=== PATIENT | female | born 1975 | race Caucasian/White ===

== ENCOUNTER → 2019-01-11 | Outpatient (CLI) | payer OTHER ==
[~2019-01-11] MED LIST: ALBU90OI INH; ALPR.25 PO; AMIT25 PO; AMOCLA875 PO; AMOX500 PO; ASPI81CH PO; BUPR150ER PO; BUPR150T2 PO; CARV6.25 PO; CHLO25B PO; CIPR500 PO; CLON.1 PO; CODGUAEL PO; Cipro500 MG PO; DIPATR PO; ERGO50000 PO; FLUO20 PO; GLIP10 PO; HYDACE5 PO; HYDGUAL120 PO; HYDPAM25 PO; HYDROCHLOROTHIAZIDE; INSUASPI; INSUASPI SC; INSUASPI SUBQ; INSULANI SC; INSULANI SUBQ; INSULANPEN SC; LATA.005SO BOTHEYES; LEVSOD100 PO; LISHYD1012 PO; LISHYD2025 PO; LISI20 PO; LISINOPRIL; LOSA50 PO; LOSHYD; MAGOXI400 PO; MELO7.5 PO; METF500 PO; METO50ER PO; Norco 5-325 Ta1 EACH PO; OCUVITE EYE +1 EACH PO; OMEP20ER PO; Ocuvite Softge1 EAC1 PO; POTCHL10ER PO; PRAV20 PO; PROCODE120 PO; PROM25 PO; PROP120ER PO; SULTRIDS PO; TIMO.25OPS BOTHEYES; TRAM50 PO; TRIHYD253A PO; Vistaril50 MG PO; Vitamin B Comple1 EA PO; WATER PILL; ZESTORETIC 20-121 EA PO; [UNRECOGNIZED DRUG - REMARK]
== END ==
LOC: LAB SHORT 10:30 → LAB 10:30 → LAB FUT 12-30 11:45
DX: K52.9 Noninfective gastroenteritis and colitis, unspecified (principal); E03.9 Hypothyroidism, unspecified
CPT/HCPCS: 87338

== ENCOUNTER 2019-02-16 08:53 | Day surgery (SDC) | payer OTHER ==
[~2019-02-16] VITALS: Ht 162 cm; Wt 107.6 kg
[~2019-02-16 08:53] MED LIST changes: +AMLO10 PO; +Aspir 8181 MG PO; +BASAGLAR SC; +BUSP5 PO; +Bupropion HCl150 M2 PO; +Glucophage1000 MG PO; +LEVO-T137 MCG PO; +LOSARTAN POTAS100 MG PO; +NOVOLOG FL100 UNIT/1 SC; +OCUVITE ADULT1 EAC1 PO
--- NOTE | 2019-02-16 10:20 | NUR ---
History, Chart, Medications and Allergies reviewed before start of procedure. Patient States Post-Procedure ride home has been arranged.
--- NOTE | 2019-02-16 10:40 | NUR ---
02/16/19 1040 JolynnKedar PATIENT DETERMINED TO BE ASA APPROPRIATE FOR PROPOFOL SEDATION PRIOR TO START OF PROCEDURE BY 3-LEAD EKG REVIEWED WITH PHYSICIAN PRIOR TO START OF PROCEDURE.Patient to ENDO 1History, Chart, Medications and Allergies reviewed before start of procedure.MONITOR INTACT WITH CONTINUOUS PULSE OXIMETRY AND INTERMITTENT BP.O2 VIA N/C INTACT THROUGHOUT SEDATION/PROCEDURE.
--- NOTE | 2019-02-16 12:05 | NUR ---
PT AMBULATES TO AND FROM RESTROOM WITH NO DIZZINESS OR NAUSEA. PT GETS DRESSED. DC INFORMATION REVIEWED. IV DC, TIP INTACT. THIS RN TO ESCORT PT TO LOBBY TO WAIT FOR RIDE HOME.
== END 2019-02-16 12:27 | disposition home or self-care (01) ==
LOC: ORSCMMR 08:53 → ORD 10:00 → ORSCMMR 10:00
PROVIDERS: Internal Medicine Gastroenterology
PROC: 0DBE8ZX Excision of Large Intestine, Via Natural or Artificial Opening Endoscopic, Diagnostic (ICD-10-PCS; principal; 2019-02-16 10:00)
DX: R19.7 Diarrhea, unspecified (principal); K59.00 Constipation, unspecified; E11.9 Type 2 diabetes mellitus without complications; E03.9 Hypothyroidism, unspecified; I10 Essential (primary) hypertension; Z79.4 Long term (current) use of insulin; Z79.899 Other long term (current) drug therapy; E66.01 Morbid (severe) obesity due to excess calories; Z68.39 Body mass index [BMI] 39.0-39.9, adult
CPT/HCPCS: 82947; 88305; J2250; J2704; J7120

== ENCOUNTER 2019-03-19 08:16 | Day surgery (SDC) | payer OTHER | END 2019-03-19 22:38 | disposition home or self-care (01) | LOC: US 08:16 | DX: R94.5 Abnormal results of liver function studies (principal); E89.0 Postprocedural hypothyroidism; I10 Essential (primary) hypertension; E11.39 Type 2 diabetes mellitus with other diabetic ophthalmic complication; H42 Glaucoma in diseases classified elsewhere; F32.9 Major depressive disorder, single episode, unspecified; F41.9 Anxiety disorder, unspecified; E66.9 Obesity, unspecified; Z68.39 Body mass index [BMI] 39.0-39.9, adult; Z90.710 Acquired absence of both cervix and uterus; Z90.49 Acquired absence of other specified parts of digestive tract; Z88.8 Allergy status to other drugs, medicaments and biological substances; Z79.4 Long term (current) use of insulin; Z79.82 Long term (current) use of aspirin; Z79.899 Other long term (current) drug therapy | CPT/HCPCS: 47000; 76942; 88307 ==

== ENCOUNTER → 2022-07-26 | Outpatient (CLI) | payer OTHER ==
[~2022-07-26] MED LIST changes: +AMLO5 PO; +BASAGLAR K100 UNIT/8 SC; +Budeprion Xl300 MG PO; +GLUCOPHAGE1000 M1 PO; +LOSARTAN POTAS100 M1 PO; +NOVOLOG FL100 UNIT/2; +SYNTHROID137 MCG PO; +VITAMIN D32000 UNI2 PO
[2022-07-26 19:41] LABS: BASOPHILS ABSOLUTE AUTO 0.08 K/mm3 (0.00-0.23); BASOPHILS PERCENT AUTO 1 % (0-2); EOSINOPHILS ABSOLUTE AUTO 0.08 K/mm3 (0.00-0.68); EOSINOPHILS PERCENT AUTO 1 % (0-6); Hematocrit 38.6 % (33.0-51.0); Hemoglobin 12.6 g/dL (11.5-16.0); IMMATURE GRAN ABSOLUTE AUTO 0.08 K/mm3 (0.00-0.10); IMMATURE GRAN PERCENT AUTO 1 % (0-1); LYMPHOCYTES ABSOLUTE AUTO 2.68 K/mm3 (0.84-5.20); LYMPHOCYTES PERCENT AUTO 39 % (21-46); MONOCYTES ABSOLUTE AUTO 0.52 K/mm3 (0.16-1.47); MONOCYTES PERCENT AUTO 8 % (4-13); Mean Corpuscular HGB 25.9 pg (26.0-34.0); Mean Corpuscular HGB Conc 32.6 g/dL (31.5-36.5); Mean Corpuscular Volume 79 fL (80-100); NEUTROPHILS ABSOLUTE AUTO 3.43 K/mm3 (1.96-9.15); NEUTROPHILS PERCENT AUTO 50 % (41-73); RDW Coefficient Variation 13.3 % (11.7-14.2); RDW Standard Deviation 37.9 fL (35.1-46.3); Red Blood Cell Count 4.87 M/mm3 (3.80-5.20); White Blood Cell Count 6.87 K/mm3 (4.00-11.30)
[2022-07-26 20:14] LABS: Mean Platelet Volume 9.8 fL (9.1-12.4); Platelet Count 363 K/mm3 (150-400)
[2022-07-26 20:24] LABS: Albumin, Blood 3.6 g/dL (3.4-5.0); Albumin/Globulin Ratio 0.8 (0.8-1.8); Bilirubin, Total 0.4 mg/dL (0.1-1.0); Bun/Creatinine Ratio 23.2 (12.0-20.0); Calcium, Blood 9.6 mg/dL (8.5-10.1); Creatinine, Blood 1.12 mg/dL (0.40-1.00); Globulin, Blood 4.4 g/dL (2.2-4.0); Potassium, Blood 3.7 mmol/L (3.5-5.5)
== END | disposition home or self-care (01) ==
LOC: LAB 18:49 → LAB SHORT 18:49
PROVIDERS: Family Medicine
DX: K74.60 Unspecified cirrhosis of liver (principal); Z79.899 Other long term (current) drug therapy
CPT/HCPCS: 80053; 85025

== ENCOUNTER → 2023-03-21 | Outpatient (CLI) | payer OTHER ==
[2023-03-21 20:44] LABS: BASOPHILS ABSOLUTE AUTO 0.05 K/mm3 (0.00-0.23); BASOPHILS PERCENT AUTO 1 % (0-2); EOSINOPHILS ABSOLUTE AUTO 0.05 K/mm3 (0.00-0.68); EOSINOPHILS PERCENT AUTO 1 % (0-6); Hemoglobin 15.2 g/dL (11.5-16.0); IMMATURE GRAN ABSOLUTE AUTO 0.08 K/mm3 (0.00-0.10); IMMATURE GRAN PERCENT AUTO 2 % (0-1); LYMPHOCYTES ABSOLUTE AUTO 2.44 K/mm3 (0.84-5.20); LYMPHOCYTES PERCENT AUTO 50 % (21-46); MONOCYTES PERCENT AUTO 8 % (4-13); Mean Corpuscular HGB 26.4 pg (26.0-34.0); Mean Corpuscular Volume 80 fL (80-100); Mean Platelet Volume 10.7 fL (9.1-12.4); NEUTROPHILS ABSOLUTE AUTO 1.82 K/mm3 (1.96-9.15); NEUTROPHILS PERCENT AUTO 38 % (41-73); Platelet Count 266 K/mm3 (150-400); RDW Coefficient Variation 13.1 % (11.7-14.2); RDW Standard Deviation 37.2 fL (35.1-46.3); Red Blood Cell Count 5.75 M/mm3 (3.80-5.20); White Blood Cell Count 4.84 K/mm3 (4.00-11.30)
[2023-03-21 21:07] LABS: Free Thyroxine 1.27 ng/dL (0.70-1.60); Thyroid Stimulating Hormone 2.26 uIU/mL (0.360-4.800)
[2023-03-21 21:08] LABS: Albumin, Blood 3.8 g/dL (3.4-5.0); Bilirubin, Total 0.4 mg/dL (0.1-1.0); Bun/Creatinine Ratio 22.7 (12.0-20.0); Calcium, Blood 9.4 mg/dL (8.5-10.1); Creatinine, Blood 0.93 mg/dL (0.40-1.00); Globulin, Blood 3.8 g/dL (2.2-4.0); Magnesium, Blood 2.4 mg/dL (1.6-2.4); Phosphorus, Blood 3.8 mg/dL (2.5-4.9); Potassium, Blood 3.6 mmol/L (3.5-5.5); Total Protein, Blood 7.6 g/dL (6.4-8.2)
== END ==
LOC: LAB 19:19 → LAB SHORT 19:19
PROVIDERS: Family Medicine
DX: E86.0 Dehydration (principal)
CPT/HCPCS: 80053; 83540; 83735; 84100; 84439; 84443; 85025